=== PATIENT | female | born 1985 | race Caucasian/White ===

== ENCOUNTER 2017-08-01 19:33 | Emergency (ER) | payer BC, OTHER ==
[2017-08-01 19:56] VITALS: BP 141/91
[2017-08-01] MEDS ORDERED: HYDROcodone/ACETAMIN 5-325 MG* 1 TAB PO ONE (20:18)
--- NOTE | 2017-08-01 20:36 | ED ---
Asthma - HPI Summary HPI Summary: 32 yo WF h/o asthma has had cold sx x 2 weeks has been on prednisone x 2weeks not has cough that is worsening with SEVERE left rib pains that left her in tears. Denies f/c but cough is so bad that she cannot sleep at night, she has abx at home from [address] [facility] but never started taking them - History of Current Complaint Chief Complaint: UCRespiratory Stated Complaint: RIB,BREATHING PAIN Time Seen by Provider: 08/01/17 19:49 Hx Obtained From: Patient Onset/Duration: Lasting Weeks Timing: Constant Initial Severity: Severe Current Severity: Severe Pain Intensity: 7 - Allergy/Home Medications Allergies/Adverse Reactions: Allergies Allergy/AdvReac Type Severity Reaction Status Date / Time No Known Allergies Allergy Verified 08/01/17 19:56 Home Medications: Home Medications Albuterol HFA INHALER* [Ventolin HFA Inhaler*] 1 puff INH Q4H PRN 08/01/17 [ History Confirmed 08/01/17] Cholecalciferol (Vitamin D3) [Vitamin D3] 1,000 unit PO 08/01/17 [History] Fluticas/Salmet 230/21 HFA(NF) [Advair HFA 23O/21 (NF)] 1 puff INH BID 08/01/17 [History Confirmed 08/01/17] Multivitamin [Multivitamins] 1 cap PO 08/01/17 [History] methylPREDNISolone [Medrol Dosepak 4 MG*] 1 mg PO .SEE JONY INSTRUCTION 08/01/17 [History Confirmed 08/01/17] PMH/Surg Hx/FS Hx/Imm Hx Previously Healthy: Yes Respiratory History: Reports: Hx Asthma - Surgical History Surgery Procedure, Year, and Place: lt knee bakers cyst, deviated septum repair. Infectious Disease History: No Infectious Disease History: Denies: Traveled Outside the [place] in Last 30 Days - Social History Alcohol Use: Weekly Substance Use Type: Reports: None Smoking Status (MU): Never Smoked Tobacco Review of Systems Constitutional: Negative Eyes: Negative ENT: Negative Cardiovascular: Negative Positive: Shortness Of Breath, Cough, Other - rib pains Gastrointestinal: Negative Genitourinary: Negative Musculoskeletal: Negative Skin: Negative Neurological: Negative Psychological: Normal All Other Systems Reviewed And Are Negative: Yes Physical Exam Triage Information Reviewed: Yes Vital Signs On Initial Exam: Initial Vitals Temp Pulse Resp BP Pulse Ox 37.8 C 67 18 141/91 98 08/01/17 19:49 08/01/17 19:49 08/01/17 19:49 08/01/17 19:49 08/01/17 19:49 Vital Signs Reviewed: Yes Appearance: Positive: Well-Appearing Skin: Positive: Warm Eyes: Positive: Normal ENT: Positive: Normal ENT inspection Neck: Positive: Supple Respiratory/Lung Sounds: Positive: Clear to Auscultation, Breath Sounds Present , Rhonchi - and coarse BS B?L. Negative: Decreased Breath Sounds, Rales, Stridor, Wheezes Cardiovascular: Positive: Normal, RRR Abdomen Description: Positive: Nontender Neurological: Positive: Normal Psychiatric: Positive: Normal Diagnostics - Vital Signs Vital Signs Temp Pulse Resp BP Pulse Ox 08/01/17 19:49 37.8 C 67 18 141/91 98 - Laboratory Lab Statement: Any lab studies that have been ordered have been reviewed, and results considered in the medical decision making process. Asthma Course/Dx - Course Course Of Treatment: Continue Medrol dose jony and start taking abx prescribed from [address] [place] [address] a few days ago. Promethazine with codeine for cough supression and Percocet for PRN severe rib pains - Diagnoses Provider Diagnoses: Asthma exacerbation, Elevated BP without diagnosis of hypertension Discharge - Sign-Out/Discharge Documenting (check all that apply): Discharge/Admit/Transfer - Discharge Plan Condition: Stable Disposition: HOME Prescriptions: oxyCODONE/Acetamin 5/325 MG* [Percocet 5/325 TAB*] 1 tab PO Q6H PRN 3 Days #12 tab MDD 4 PRN Reason: Pain Promethazine/Phenyleph/Codeine [[id number]-Bnpuihi Syrup] 5 ml PO QID PRN 5 Days #1 btl MDD 20 ML PRN Reason: Cough Patient Education Materials: Asthma (ED), Acute Bronchitis (ED), Wheezing (ED) Referrals: Yessica Garcia MD [Primary Care Provider] - - Billing Disposition and Condition Condition: STABLE Disposition: HOME
== END 2017-08-01 20:33 | disposition home or self-care (01) ==
LOC: UCEAST 19:33
DX: J45.901 Unspecified asthma with (acute) exacerbation (principal); R03.0 Elevated blood-pressure reading, without diagnosis of hypertension
CPT/HCPCS: 99202; G0463